=== PATIENT | male | born 1985 | race Caucasian/White ===

== ENCOUNTER 2021-02-17 09:48 | Emergency (ER) | payer BC ==
[~2021-02-17] VITALS: Ht 165.1 cm; Wt 81.6 kg
[2021-02-17] MEDS ORDERED: PEPCID AC20 MG PO (15:09)
[2021-02-17] MEDS ORDERED: KETO10TA2 PO (15:09)
[2021-02-17] MEDS ORDERED: ZITHROMAX500 MG PO (15:21)
== END 2021-02-17 15:21 ==
LOC: ER 09:48
DX: U07.1 COVID-19 (principal); E86.0 Dehydration

== ENCOUNTER 2021-02-20 09:25 | Outpatient (CLI) | payer BC ==
[~2021-02-20 09:25] MED LIST: KETO10TA2 PO; PEPCID AC20 MG PO; ZITHROMAX500 MG PO
== END 2021-02-20 11:30 | disposition home or self-care (01) ==
LOC: ASH CLINIC 09:25
PROVIDERS: ATTEND General Practice
DX: U07.1 COVID-19 (principal); Z23 Encounter for immunization